=== PATIENT | male | born 1985 | race Hispanic/Latino ===

== ENCOUNTER 2017-06-17 19:16 | Emergency (ER) | payer OTHER ==
[2017-06-17 19:24] VITALS: BP 106/46; PULSE 84; RESP 16; TEMP 98; O2SAT 96
--- NOTE | 2017-06-17 20:55 | ED PDOC ---
HPI: General Adult Time Seen by Provider: 06/17/17 19:26 Chief Complaint (Nursing): ENT Problem Chief Complaint (Provider): Nose injury History Per: Patient History/Exam Limitations: no limitations Additional Complaint(s): 31yo male, presents to ED for evaluation of a nose injury, sustained while he was lifting weights which fell and hit his nose. Patient reports he had some bleeding from his nose which has now subsided. He reports pain and swelling to his nose as well. Patient deneis any headache, loss of consciousness, dizziness , nausea or vomiting. No other complaints. Past Medical History Reviewed: Historical Data, Nursing Documentation, Vital Signs Vital Signs: Last Vital Signs Temp 98.0 F 06/17/17 19:21 Pulse 84 06/17/17 19:21 Resp 16 06/17/17 19:21 BP 106/46 L 06/17/17 19:21 Pulse Ox 96 06/17/17 20:59 - Medical History PMH: Asthma Denies: Chronic Kidney Disease - Surgical History Surgical History: No Surg Hx - Family History Family History: States: No Known Family Hx - Allergies Allergies/Adverse Reactions: Allergies Allergy/AdvReac Type Severity Reaction Status Date / Time Sulfa (Sulfonamide Allergy SHORTNESS Verified 06/17/17 19:21 Antibiotics) OF BREATH Review of Systems ROS Statement: Except As Marked, All Systems Reviewed And Found Negative ENT: Positive for: Nose Pain Gastrointestinal: Negative for: Nausea Neurological: Negative for: Headache, Dizziness Physical Exam - Reviewed Nursing Documentation Reviewed: Yes Vital Signs Reviewed: Yes - Physical Exam Comments: GENERAL APPEARANCE: Patient is awake, alert, oriented x 3, in no acute distress. SKIN: Warm, dry; (-) cyanosis, (-) rash. EYES: (-) conjunctival pallor, (-) scleral icterus, (-) conjunctival hemorrhage. ENMT: Mild ecchymosis, edema noted to nose. No nasal bridge tenderness. Dried blood noted in nares. NECK: (-) tenderness, (-) stiffness, (-) lymphadenopathy. CHEST AND RESPIRATORY: (-) chest wall tenderness. Lungs: (-) rales, (-) rhonchi, (-) wheezes; breath sounds equal bilaterally. HEART AND CARDIOVASCULAR: (-) irregularity; (-) murmur, (-) gallop. ABDOMEN AND GI: Soft; (-) tenderness. BACK: (-) tenderness. EXTREMITIES: (-) deformity, (-) tenderness, (-) limitation of motion NEURO AND PSYCH: GCS=15. Mental status as above. 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 EOMI. (-) facial asymmetry. Tongue and uvula midline. Strength 5/5 in all extremities. No gross sensory deficits. DTRs symmetric. - ECG O2 Sat by Pulse Oximetry: 96 (RA) Pulse Ox Interpretation: Normal Medical Decision Making Medical Decision Making: Impression: Nose injury Plan: -- XR offered however patient states he has had multiple scans and XR's in the past and is refusing it at this time. Patient informed to always stay with another individual at home and observe for any changes in behavior, any headache, vomiting. Advised to follow up with primary care physician in 1-2 days without fail. Advised to take tylenol for pain. Return to the emergency room at any time for any new or worsening symptoms. Patient states he fully agrees with and understands discharge instructions. States that he agrees with the plan and disposition. Verbalized and repeated discharge instructions and plan. I have given the patient opportunity to ask any additional questions. Scribe Attestation: Documented by Karlene Manley acting as a scribe for Yvette Waite PA-C. Provider Attestation: All medical record entries made by the Scribe were at my direction and personally dictated by me. I have reviewed the chart and agree that the record accurately reflects my personal performance of the history, physical exam, medical decision making, and the department course for this patient. I have also personally directed, reviewed, and agree with the discharge instructions and disposition. Disposition - Clinical Impression Clinical Impression: Nasal contusion, Head injury - Patient ED Disposition Is Patient to be Admitted: No Counseled Patient/Family Regarding: Diagnosis, Need For Followup - Disposition Disposition: Routine/Home Disposition Time: 18:00 Condition: STABLE Additional Instructions: Thank you for letting us take care of you today. You were treated for nasal contusion, head injury. The emergency medical care you received today was directed at your acute symptoms. Take only tylenol for pain. It may take several days for your symptoms to resolve. Return to the Emergency Department if your symptoms worsen, do not improve, or if you have any other problems. Please contact your doctor in 2 days for re-evaluation and follow up / or call one of the physicians/clinics you have been referred to that are listed on the Patient Visit Information form that is included in your discharge packet. Bring any paperwork you were given at discharge with you along with any medications you are taking to your follow up visit. Our treatment cannot replace ongoing medical care by a primary care provider (PCP) outside of the emergency department. Thank you for allowing the [facility] team to be part of your care today. If you had an X-Ray or CT scan: A Radiologist will review the ED reading if any change in treatment is needed we will contact you. Instructions: Concussion in Adults, Closed Head Injury Forms: [employer] (Gabonese), [facility] ED School/Work Excuse
== END 2017-06-17 20:03 | disposition home or self-care (01) ==
LOC: H.ER 19:16
DX: S09.90XA Unspecified injury of head, initial encounter (principal); S00.33XA Contusion of nose, initial encounter; W22.8XXA Striking against or struck by other objects, initial encounter; Y92.89 Other specified places as the place of occurrence of the external cause; J45.909 Unspecified asthma, uncomplicated